=== PATIENT | female | born 1970 | race Hispanic/Latino ===

== ENCOUNTER 2016-08-21 11:22 | Emergency (ER) | payer BC ==
[2016-08-21 11:30] VITALS: TEMP 98; BMI 22.3
--- NOTE | 2016-08-21 12:38 | ED PDOC ---
HPI: Back Time Seen by Provider: 08/21/16 12:09 Chief Complaint (Nursing): Back Pain Chief Complaint (Provider): Back pain History Per: Patient History/Exam Limitations: no limitations Onset/Duration Of Symptoms: Hrs Current Symptoms Are (Timing): Still Present Additional History Per: Patient Additional Complaint(s): Amanda Aparicio is a 46 year old female with no pertinent past medical history who presents to the ED with a chief complaint of pain on her right buttocks and back. Associated symptoms include nausea today with radiation to the right pelvic area which prompted her visit. Patient reports to sitting all day at work and stretches yesterday to relieve the pain. Patient admits to taking medication which helped slightly with the pain. Past Medical History Reviewed: Historical Data, Nursing Documentation, Vital Signs Vital Signs: Last Vital Signs Temp 98 F 08/21/16 11:29 Pulse 71 08/21/16 11:29 Resp BP 116/75 08/21/16 11:29 Pulse Ox 100 08/21/16 11:29 - Medical History PMH: No Chronic Diseases - Surgical History Surgical History: No Surg Hx - Family History Family History: States: Unknown Family Hx - Home Medications Home Medications: Ambulatory Orders Medication Instructions Recorded Cyclobenzaprine [Cyclobenzaprine 10 mg PO Q8H #20 tab 08/21/16 HCl] Ibuprofen [Motrin] 600 mg PO Q8 PRN #30 tab 08/21/16 - Allergies Allergies/Adverse Reactions: Allergies Allergy/AdvReac Type Severity Reaction Status Date / Time phenazopyridine AdvReac VOMITING Verified 08/21/16 11:46 [From Pyridium] Review of Systems ROS Statement: Except As Marked, All Systems Reviewed And Found Negative Gastrointestinal: Positive for: Nausea Musculoskeletal: Positive for: Back Pain, Other (Buttocks pain) Physical Exam - Reviewed Nursing Documentation Reviewed: Yes Vital Signs Reviewed: Yes - Physical Exam Appears: Positive for: Well, Non-toxic, No Acute Distress Head Exam: Positive for: ATRAUMATIC, NORMAL INSPECTION, NORMOCEPHALIC Skin: Positive for: Normal Color, Warm, Dry Eye Exam: Positive for: Normal appearance ENT: Positive for: Normal ENT Inspection Neck: Positive for: Normal Cardiovascular/Chest: Positive for: Regular Rate, Rhythm, Chest Non Tender. Negative for: Murmur, Tachycardia Respiratory: Positive for: Normal Breath Sounds. Negative for: Accessory Muscle Use, Respiratory Distress Gastrointestinal/Abdominal: Positive for: Normal Exam, Soft, Other (right pelivc tenderness ). Negative for: Tenderness Extremity: Positive for: Normal ROM Neurologic/Psych: Positive for: Alert, Oriented - ECG O2 Sat by Pulse Oximetry: 100 (RA) Pulse Ox Interpretation: Normal Medical Decision Making Medical Decision Makin: Initial Impression: Trauma to lower hip and buttocks Initial Plan: * ED urine * U-Dip * Ondansetron ODT 4mg * Transvaginal US * Re-eval Pt reports decreased nausea on re-evaluation. Pt states she is in pain but does not want medication because she did not eat yet. Pt states she will eat and then US will be repeated because the right adenexa was not visualized. Pt reports feeling much better after motrin. MRI shows equal enhancement of right and left ovaries. Scribe Attestation: Documented by Dao Oscar acting as a scribe for Shruthi Delgado PA-C. Provider Attestation: All medical record entries made by the Scribe were at my direction and personally dictated by me. I have reviewed the chart and agree that the record accurately reflects my personal performance of the history, physical exam, medical decision making, and the department course for this patient. I have also personally directed, reviewed, and agree with the discharge instructions and disposition. Disposition - Clinical Impression Clinical Impression: Sciatica - Disposition Referrals: [facility] [Outside] Disposition: Routine/Home Disposition Time: 19:47 Condition: STABLE Prescriptions: Cyclobenzaprine [Cyclobenzaprine HCl] 10 mg PO Q8H #20 tab Ibuprofen [Motrin] 600 mg PO Q8 PRN #30 tab PRN Reason: Pain, Severe (8-10) Instructions: Sciatica (ED) Forms: [facility] ED School/Work Excuse
[2016-08-21 14:42] LABS: RBC URINE 2 /hpf (0-3); URINE BACTERIA RARE (<OCC); URINE BILIRUBIN NEGATIVE (NEGATIVE); URINE BLOOD NEGATIVE (NEGATIVE); URINE COLOR YELLOW (YELLOW); URINE GLUCOSE (UA) NEG (Normal); URINE KETONE TRACE mg/dL (NEGATIVE); URINE LEUKOCYTE ESTERASE NEG Leu/uL (Negative); URINE PROTEIN 30 mg/dL (NEGATIVE); URINE UROBILINOGEN 0.2-1.0 mg/dL (0.2-1.0); WBC URINE 1 /hpf (0-5)
--- NOTE | 2016-08-21 14:43 | US ---
HISTORY: Right-sided pelvic pain 2 days duration. LMP 08/05/2016. COMPARISON: None TECHNIQUE: Transvaginal only. Real -time technique with 2D, duplex and color Doppler FINDINGS: UTERUS: Measures 5.3 x 7.5 cm. Normal in size and appearance. Multiple (4) uterine fibroids. Fundal fibroid 1.8 x 2 cm. Fundal fibroid to the right of the midline 1.6 x 1.9 cm. Fibroid in the body of the uterus lower uterine segment 1 cm. Fibroid in the lower uterine segment 1.6 x 2 cm. ENDOMETRIUM: Measures 8.0 mm in diameter. No ultrasound findings to suggest gestational sac, fluid, debris, mass or polyp or other pathologic process within the endometrium. CERVIX: No cervical abnormality identified. RIGHT OVARY: Not visualized. LEFT OVARY: Measures 2.8 x 3.3 cm. No solid mass. Normal flow. Multiple subcentimeter follicles. Dominant cysts 1.4 cm FREE FLUID: No significant free fluid noted. OTHER FINDINGS: None. IMPRESSION: Normal size myomatous uterus. No acute findings related to/accounting for the clinical presentation. Limitations of the current examination: Nonvisualization right adnexa.
[2016-08-21 19:50] VITALS: BP 118/78; PULSE 72; RESP 18; O2SAT 99
--- NOTE | 2016-08-22 13:08 | MRI ---
PROCEDURE: MRI of the pelvis without contrast HISTORY: Right sided pain, r/o torsion - Not seen on US COMPARISON: Transvaginal pelvic ultrasound performed 08/21/16 TECHNIQUE: Multiplanar, multi sequence MR images of the pelvis were obtained. A total of 201 images were submitted for review. No intravenous gadolinium contrast was administered. FINDINGS: The uterus is present with several probable fibroids, the largest within the left fundus measuring approximately 2.8 x 3.5 cm. The right ovary is not well visualized. The endometrium measures approximately 6 mm. Several left ovarian follicles, the largest follicle noted within the left ovary measuring up to 1.2 x 1.7 cm. No significant pelvic free fluid. Limited visualization of bowel appears within normal limits of caliber without evidence of obstruction. Under distended urinary bladder appears grossly unremarkable. No acute osseous abnormality is detected. IMPRESSION: The right ovary is not visualized. The left ovary appears grossly unremarkable and contains follicles. No evidence of portion. Multiple uterine fibroids. No evidence of pelvic free fluid. Preliminary impression was provided by virtual radiologic. STUDY IS BEEN MARKED FOR PA REVIEW.
== END 2016-08-21 19:50 | disposition home or self-care (01) ==
LOC: H.ER 11:22
DX: M54.30 Sciatica, unspecified side (principal)